=== PATIENT | male | born 1995 | race Caucasian/White ===

== ENCOUNTER 2020-09-27 06:39 | Outpatient (NON) | payer BC, SELFPAY ==
[2020-09-27 23:55] LABS: SARS-CoV-2 RNA PCR Positive
== END 2020-09-27 06:40 ==
LOC: ANHCOVIDDT 07:12
PROVIDERS: PCP Internal Medicine; Visit Provider Internal Medicine
DX: U07.1 COVID-19 (principal)
CPT/HCPCS: 87635; C9803; U0003

== ENCOUNTER 2020-10-10 06:52 | Outpatient (NON) | payer BC, SELFPAY ==
[2020-10-11 21:14] LABS: SARS-CoV-2 RNA PCR Positive
== END 2020-10-10 06:53 ==
PROVIDERS: PCP Internal Medicine; Visit Provider Internal Medicine
DX: U07.1 COVID-19 (principal)
CPT/HCPCS: 87635; C9803; U0003

== ENCOUNTER 2020-10-27 06:57 | Outpatient (NON) | payer BC, SELFPAY ==
[2020-10-27 18:46] LABS: SARS-CoV-2 RNA PCR Negative
== END 2020-10-27 06:58 ==
LOC: ANHCOVIDDT 07:00
PROVIDERS: Visit Provider Internal Medicine
DX: Z20.828 Contact with and (suspected) exposure to other viral communicable diseases (principal)
CPT/HCPCS: 87635; C9803; U0003

== ENCOUNTER 2021-06-02 19:42 | Emergency (ER) | payer BC, SELFPAY ==
[2021-06-02 19:51] VITALS: BP 136/79; PULSE 105; RESP 18; TEMP 38.6; O2SAT 98
--- NOTE | 2021-06-02 20:01 | ED.GENADULT ---
HPI - General Adult General Chief complaint: Upper Respiratory Infection Stated complaint: Sore throat, body ache Time Seen by Provider: 06/02/21 20:05 Source: patient and RN notes reviewed Mode of arrival: ambulatory Limitations: no limitations History of Present Illness HPI narrative: 25-year-old male presents with complaints of sore throat and intermittent headache (not the worst of his life) for the past 3-4 days. ?Saji reports increasing sore throat, ear pressure, and body aches over the past 48 hours. Aspirin today at noon without relief. ?No high fevers, drooling, neck or throat swelling. ?Pain is bilateral. ?Hurts to swallow. ?Exacerbation factors consist of swallowing, eating, and drinking. ?No rhinorrhea or nasal congestion. ?No voice change. ?No nausea, vomiting, or abdominal pain. ?Tolerating liquids well. ?Denies chills, dyspnea, difficulty swallowing, jaw pain, dental pain, facial pain, foreign body sensation, and rash. Remains active. The patient reports he was diagnosed with COVID-19 in September 2020. The patient reports he is not waiting for the results of a COVID-19 lab test. ?The patient reports he does not have weakness, fatigue, or myalgia. ?The patient reports he does not have a new or worsening cough or shortness of breath. ?The patient reports he does not have any rhinorrhea, congestion, loss of taste, and diarrhea. ?Denies recent traveling. ?Denies concerns for COVID-19 or exposures. ?At this time, the patient is not suspected of having COVID-19. Some parts of this dictation were generated by voice recognition software and may contain typographical and/or grammatical inaccuracies. Related Data Allergies Allergy/AdvReac Type Severity Reaction Status Date / Time No Known Allergies Allergy Verified 06/02/21 19:50 Review of Systems Review of Systems: Narrative: CONSTITUTIONAL: Denies fever, chills, sweats. Complaints of body aches. EYES: Denies visual changes, redness, discharge. ENT: Denies rhinorrhea, congestion, otalgia. Complains of sore throat, ear pressure. CARDIOVASCULAR: Denies chest pain, palpitations, edema. RESPIRATORY: Denies dyspnea, wheezing, cough. GASTROINTESTINAL: Denies abdominal pain, nausea, vomiting, diarrhea. GENITOURINARY: Denies dysuria, hematuria, abnormal discharge. SKIN: Denies rash or itching. MUSCULOSKELETAL: Denies acute back pain, joint pain, or myalgia. NEUROLOGIC: Denies numbness or focal weakness. PSYCHIATRIC: Denies anxiety or depression. Complaints of CANTU. All systems reviewed & are unremarkable except as noted in HPI and below. [facility] Past Medical History Medical History (Updated 06/09/21 @ 19:06 by LEBRON Booker) COVID-19 09/2020 Surgical History Surgical History (Updated 06/09/21 @ 19:06 by LEBRON Booker) History of dental surgery Family History Family History Other Family history of arthritis Hypertension Social History Social History (Updated 06/09/21 @ 19:07 by LEBRON Booker) Smoking status: Current every day smoker Tobacco type: e-cigarettes/vaping Second hand tobacco smoke exposure: No Alcohol intake: current Substance use: never Substance use type: does not use Living arrangements: with family Occupation/Education: occupation Gender identity (if verbalized by the patient): Male Sexual Orientation (if Verbalized by the Patient): Straight or Heterosexual Comments At time of signature, agree with the nurse past medical, surgical, social, and family history. There is no relevant family history pertinent to the presenting complaint. Exam Narrative: Exam Narrative: GENERAL: This is a well-nourished, well-developed patient, in no apparent distress. Speaks in full sentences without deficits and ambulates with steady gait without dyspnea. HEAD: Normocephalic, atraumatic. EYES: PERRL. Sclera clear/white. Vision is grossly intact. EARS: E
[2021-06-02 20:18] VITALS: TEMP 38.6
[2021-06-02] MEDS: IBUPROFEN 400 MG TABLET 800 MG PO (20:18)
[2021-06-02] MEDS: ACETAMINOPHEN 500 MG TABLET 1000 MG PO (20:21)
[2021-06-02 20:42] VITALS: TEMP 38.6
== END 2021-06-02 20:44 | disposition home or self-care (01) ==
PROVIDERS: Emergency Provider Nurse Practitioner Family
DX: B27.90 Infectious mononucleosis, unspecified without complication (principal); F17.200 Nicotine dependence, unspecified, uncomplicated
CPT/HCPCS: 36416; 86308; 87081; 87880; 99213; A9270; G0463

== ENCOUNTER 2022-07-01 13:21 | Emergency (ER) | payer OTHER, SELFPAY ==
[2022-07-01 13:35] VITALS: BP 131/71; PULSE 83; RESP 18; TEMP 36.9; O2SAT 99
--- NOTE | 2022-07-01 13:55 | ED.BACK ---
HPI - Back Pain/Injury General Chief Complaint: Back Pain/Injury Stated Complaint: back pain Time Seen by Provider: 07/01/22 13:40 Source: patient Mode of arrival: ambulatory Limitations: no limitations History of Present Illness HPI Narrative: Patient presents today complaining of a 2-day history of right-sided low back pain. Patient states his back pain started after he was [place] Denies falling off the Jet[place]ki. Denies any injury or trauma. Denies radiation of the pain, numbness or tingling in the extremities or genitalia, loss of bowel or bladder control. States his pain had improved slightly last night, but worsened this morning. He denies pain at rest, but increases to 7/10 with movement. He has been taking Excedrin and using a heating pad. States he Excedrin is not helping. Related Data Allergies Allergy/AdvReac Type Severity Reaction Status Date / Time No Known Allergies Allergy Verified 07/01/22 13:41 Review of Systems Review of Systems: CONSTITUTIONAL: Denies body aches, fever, chills, or sweats. EYES: Denies visual changes, redness, or discharge. ENT: Denies rhinorrhea, congestion, sore throat, or otalgia. CARDIOVASCULAR: Denies chest pain, palpitations, or edema. RESPIRATORY: Denies cough or dyspnea. GASTROINTESTINAL: Denies abdominal pain, nausea, vomiting, or diarrhea. GENITOURINARY: Denies dysuria or hematuria. SKIN: Denies rash, itching, or wounds. MUSCULOSKELETAL: Denies joint pain, or myalgia.+ Back pain NEUROLOGIC: Denies headache, numbness, tingling, or weakness. PSYCH: Denies depression or anxiety. [facility] Past Medical History Medical History COVID-19 09/2020 Surgical History Surgical History History of dental surgery Family History Family History Other Family history of arthritis Hypertension Social History Social History Smoking status: Current every day smoker Tobacco type: e-cigarettes/vaping Second hand tobacco smoke exposure: No Alcohol intake: current Substance use: never Substance use type: does not use Gender identity (if verbalized by the patient): Male Sexual Orientation (if Verbalized by the Patient): Straight or Heterosexual Comments At time of signature, I have reviewed and agree with nursing past medical, surgical, social and family history unless otherwise noted. Please see nursing chart for further information. There is no relevant family history pertinent to the presenting complaint Exam Narrative: GENERAL: Well-appearing, well-nourished, and in no acute distress. HEAD: Normocephalic, atraumatic. EYES: EOMI. No redness or drainage. Conjunctivae normal. ENT: Mucous membranes pink and moist. NECK: Normal AROM. CHEST: No respiratory distress. MUSCULOSKELETAL: No midline spinal tenderness. Patient has bilateral lower lumbar paraspinal muscle pain that he localizes to this area, but is not reproducible with palpation. Negative straight leg raise. Distal sensation intact. Saddle sensation intact. Foot push and pulls equal and strong against resistance. EXTREMITIES: Normal range of motion. No edema. SKIN: Warm, dry, no rash. Capillary refill normal. Normal skin turgor. NEURO: No focal deficits. Alert and oriented x3. Gait steady. PSYCH: Normal affect. No signs of depression or anxiety. Course Course Level of Care: Express Care Visit Vital Signs Vital signs: Vital Signs Temperature 98.4 F 07/01/22 13:35 Pulse Rate 83 07/01/22 13:35 Respiratory Rate 18 07/01/22 13:35 Blood Pressure 131/71 07/01/22 13:35 Pulse Oximetry 99 07/01/22 13:35 Oxygen Delivery Room Air 07/01/22 13:35 Temperature 98.4 F 07/01/22 13:35 Pulse Rate 83 07/01/22 13:35 Res
== END 2022-07-01 14:10 | disposition home or self-care (01) ==
PROVIDERS: Emergency Provider Nurse Practitioner
DX: S39.012A Strain of muscle, fascia and tendon of lower back, initial encounter (principal); X58.XXXA Exposure to other specified factors, initial encounter; Y93.19 Activity, other involving water and watercraft; Z86.16 Personal history of COVID-19; F17.290 Nicotine dependence, other tobacco product, uncomplicated
CPT/HCPCS: 99213; G0463